=== PATIENT | female | born 1950 | race Caucasian/White ===

== ENCOUNTER 2016-08-06 11:26 | Emergency (ER) | payer MEDICARE ==
[~2016-08-06] VITALS: Ht 167.6 cm; Wt 72.0 kg
[~2016-08-06 11:26] MED LIST: 1-ME1LIQ PO; ASPI81TA21 PO; ATOR20TA PO; CLIN150 PO; DOXY100T PO; LEVA500T PO; LISI40TA PO; PARO20TA PO; REQU0.5T PO
[2016-08-06 11:28] VITALS: BP 130/91; PULSE 96; RESP 16; TEMP 98; O2SAT 98
--- NOTE | 2016-08-06 12:06 | PD ---
HPI Chief Complaint: Flank/Kidney Pain Time Seen by Provider: 12:04 Travel History International Travel<30 days: No Contact w/Intl Traveler<30days: No Traveled to known affect area: No History of Present Illness HPI 66-year-old female presents to the emergency department for evaluation of a left flank pain that began yesterday with a rash that developed today. Patient states the rash is burning and stinging and is very painful. Denies any new exposures. No recent illnesses, fever, or chills. No other symptoms to report. PFSH Past Medical History Medical History: Denies Significant Hx Social History Alcohol Use: No Tobacco Use: No Substance Use: No Allergies-Medications (Allergen,Severity, Reaction): Coded Allergies: Bactrim (Unverified Adverse Reaction, Intermediate, Cramping, 08/06/16) upsets stomach Reported Meds & Prescriptions Reported Meds & Active Scripts Active Lortab (Hydrocodone-Acetaminophen) 5-325 Mg Tab 1 Tab PO Q6H PRN Deltasone (Prednisone) 20 Mg Tab 20 Mg PO BID 5 Days Acyclovir 800 Mg Tab 800 Mg PO 5 TIMES A DAY 7 Days Reported Ropinirole 0.5 Mg Tab 0.5 Mg PO HS Nortriptyline (Nortriptyline HCl) 25 Mg Cap 25 Mg PO HS Diazepam 5 Mg Tab 5 Mg PO HS PRN Vitamin D (Cholecalciferol) 1,000 Unit Tab 500 Units PO DAILY Vitamin B-12 (Cyanocobalamin) Unknown Strength Tab Unknown Dose PO DAILY Atorvastatin (Atorvastatin Calcium) 20 Mg Tab 20 Mg PO HS Lisinopril 40 Mg Tab 40 Mg PO DAILY Amlodipine (Amlodipine Besylate) 10 Mg Tab 10 Mg PO DAILY Paroxetine (Paroxetine HCl) 20 Mg Tab 20 Mg PO DAILY Levothyroxine (Levothyroxine Sodium) 137 Mcg Tab 137 Mcg PO DAILY Review of Systems Except as stated in HPI: all other systems reviewed are Neg Physical Exam Narrative GENERAL: Well-nourished female patient, in no acute distress SKIN: Warm and dry. Erythematous rash along the left flank area and the T8 dermatomal distribution. Small vesicular formation. HEAD: Atraumatic. Normocephalic. EYES: Pupils equal and round. No scleral icterus. No injection or drainage. ENT: No nasal bleeding or discharge. Mucous membranes pink and moist. NECK: Trachea midline. No JVD. CARDIOVASCULAR: Regular rate and rhythm. No murmur appreciated. RESPIRATORY: No accessory muscle use. Clear to auscultation. Breath sounds equal bilaterally. GASTROINTESTINAL: Abdomen soft, non-tender, nondistended. Hepatic and splenic margins not palpable. MUSCULOSKELETAL: No obvious deformities. No clubbing. No cyanosis. No edema. NEUROLOGICAL: Awake and alert. No obvious cranial nerve deficits. Motor grossly within normal limits. Normal speech. PSYCHIATRIC: Appropriate mood and affect; insight and judgment normal. Data Data Last Documented VS Vital Signs Date Time Temp Pulse Resp B/P Pulse Ox O2 Delivery O2 Flow Rate FiO2 08/06/16 11:28 98.0 96 16 130/91 98 Orders Electrocardiogram (08/06/16 ) [facility] Medical Decision Making Medical Screen Exam Complete: Yes Emergency Medical Condition: Yes Medical Record Reviewed: Yes Differential Diagnosis Shingles versus contact dermatitis versus folliculitis versus insect bites Narrative Course 66-year-old female presents to the emergency department for evaluation of left flank pain with a rash that developed. Physical finding and history is consistent with shingles. I discussed the patient at my attending physician Dr. Mast who agrees the patient can be discharged home with treatment for shingles to follow-up with the primary care provider. Patient agrees with this plan of care. Diagnosis Primary Impression: Shingles Qualified Code: B02.9 - Herpes zoster without complication Referrals: Primary Care Physician Patient Instructions: General Instructions, Shingles (ED) Additional Instructions: Do not scratch the area Keep it covered (clothing is sufficient) Follow up with a primary care provider Return to the ED with any acute worsening of symptoms Med/Other Pt SpecificInfo: Prescription(s) given Scripts Hydrocodone-Acetaminophen (Lortab)5-325 Mg Tab1 Tab PO Q6H PRN (PAIN) #20 TAB Ref 0 Prov:Darwin Mast MD 08/06/16 Prednisone (Deltasone)20 Mg Tab20 Mg PO BID 5 Days Ref 0 Prov:Sumaya Phipps 08/06/16 Acyclovir 800 Mg [id number] Mg PO 5 TIMES A DAY 7 Days Ref 0 Prov:Sumaya Phipps 08/06/16 Disposition: 01 DISCHARGE HOME Condition: Stable Sumaya Phipps Aug 06, 2016 12:05
[2016-08-06] MEDS ORDERED: VITA100064 PO (12:07)
[2016-08-06] MEDS ORDERED: AMLO10TA2 PO (12:07)
[2016-08-06] MEDS ORDERED: NORT25CA PO (12:07)
[2016-08-06] MEDS ORDERED: DIAZ5TAB PO (12:07)
[2016-08-06] MEDS ORDERED: ROPI0.5T PO (12:07)
[2016-08-06] MEDS ORDERED: VITA10002 PO (12:07)
[2016-08-06] MEDS ORDERED: LEVO137T2 PO (12:07)
[2016-08-06] MEDS ORDERED: ATOR20TA15 PO (12:07)
[2016-08-06] MEDS ORDERED: PARO20TA2 PO (12:07)
[2016-08-06] MEDS ORDERED: LISI40TA PO (12:07)
[2016-08-06] MEDS ORDERED: HYDR-3533 PO ×2 (12:08→12:11)
[2016-08-06] MEDS ORDERED: ACYC800T PO (12:10)
[2016-08-06] MEDS ORDERED: PRED-503 PO (12:10)
--- NOTE | 2016-08-07 14:24 | EKG ---
Date Performed: 08/06/2016 Time Performed: 11:35:14 PTAGE: 66 years EKG: Sinus rhythm NORMAL ECG NO PREVIOUS TRACING DOCTOR: Guido Apodaca Interpretating Date/Time 08/07/2016 14:22:57
== END 2016-08-06 12:21 | disposition home or self-care (01) ==
LOC: NEPB 11:26
DX: B02.9 Zoster without complications (principal)
CPT/HCPCS: 93005